=== PATIENT | female | born 1985 | race Two or more races ===

== ENCOUNTER 2017-06-09 00:25 | Outpatient (CLI) | payer OTHER ==
[~2017-06-09] VITALS: Ht 147.3 cm; Wt 57.2 kg
[~2017-06-09 00:25] MED LIST: CALC600T5 PO; IRON45TA2 PO
[2017-06-09 00:48] VITALS: Ht 147.3 cm; Wt 57.2 kg
[2017-06-09 00:49] VITALS: BP 104/57; PULSE 71; RESP 18
[2017-06-09 01:56] LABS: ADD UMIC YES; UR ASCORBIC ACID NEGATIVE (NEGATIVE); UR BACTERIA FEW /HPF (NONE SEEN); UR BILIRUBIN (Dip) NEGATIVE (NEGATIVE); UR BLOOD (Dip) 3+ mg/dL (NEGATIVE); UR CLARITY CLEAR (CLEAR); UR COLOR YELLOW (YELLOW); UR GLUCOSE (Dip) NEGATIVE (NEGATIVE); UR KETONES (Dip) NEGATIVE (NEGATIVE); UR LEUKOCYTE ESTERASE (Dip) NEGATIVE Leu/ul (NEGATIVE); UR NITRITE (Dip) NEGATIVE (NEGATIVE); UR RBC 82 /HPF (0-5); UR SPECIFIC GRAVITY (Dip) 1.006 (1.003-1.030); UR TOTAL PROTEIN (Dip) 1+ mg/dl (NEGATIVE); UR UROBILINOGEN (Dip) NEGATIVE (NEGATIVE)
--- NOTE | 2017-06-09 02:04 | RADRPT ---
PROCEDURE: OB ultrasound for biophysical profile CLINICAL INDICATION: Abdominal pain, .. TECHNIQUE: Multiple sonographic images of the pelvis were obtained. Transabdominal view of the gr avid uterus are available for review. The images were reviewed on a PACS workstation. COMPARISON: None FINDINGS: breathing movement = 2/2 tone = 2/2 motion = 2/2 Amniotic fluid = 2/2 LASHAY = 12.6 cm Single live intrauterine in cephalic presentation with cardiac activity (154 bpm). Posterior placenta, grade 1. IMPRESSION: 1. Single viable intrauterine gestation. 2. Biophysical profile = 8/8. 3. LASHAY = 12.6 cm. RPTAT: HTAR .Trell Duffy MD, MD Date Time Electronically viewed and signed by .Trell Duffy MD, on 06/09/2017 02:04 .R/
--- NOTE | 2017-06-09 02:14 | TRIAGE ---
OB Triage Datetime Report Generated by CPN: 06/09/2017 02:14 Datetime: 06/09/2017 02:10 Stage of : OB Triage Datetime: 06/09/2017 01:00 EGA: 26.2 Datetime: 06/09/2017 00:43 Stage of : OB Triage Time of Arrival: 06/09/2017 00:18 Arrived By: Ambulance Arrived From: Home Chief Complaint: R/O LABOR Movement: Present Contractions: Irregular Time Contractions Began: 06/08/2017 19:30 Rupture of Membranes: Denies Vaginal Bleeding: None Vaginal Discharge: Denies Recent Sexual Intercouse: Denies Abdominal Trauma: Not Applicable Patient Complaints: None Time Provider Notified: 06/09/2017 01:07 Provider Notified: DR HODGE Initial Plan: CALL , EFM Maternal Assessment Level of Consciousness: Fully Conscious DTR's/Clonus: DTRs 2+; No Clonus Headache: Denies Blurred Vision: No Respiratory Effort: Unlabored; Regular Rhythm; Equal Expansion Breath Sounds, Left: Clear and Equal Breath Sounds, Right: Clear and Equal Nausea/Vomiting: Denies RUQ Epigastric Pain: Denies Lower Extremities Edema: None Degree: None Upper Extremities Edema: None Degree: None Facial Edema: None Temperature Route: Oral Fall Risk Assessment History of Falling: (0) No Secondary Diagnosis: (0) No Ambulatory Aid: (0) Bedrest/Nurse Assist IV Therapy: (0) No Gait: (0) Normal/Bedrest/Immobile Mental Status: (0) Oriented to Own Ability Fall Score: 0 Fall Risk Score Definition: No Risk: No action required Labor Evaluation Monitor Mode: External Heart Rate Monitor Mode: External US
--- NOTE | 2017-06-09 07:23 | PN ---
Triage Information Date/Time Reason for visit: Abd/pelvic pain Weeks of Gestation 26 3/7 /Para Diabetes management: diet controlled Additional information 31 Year-old with SIUP at 26 3/7 wks brought by ambulance for abdominal pain. She has been receiving her care with Dr. Shafer. She states good movement. She denies nausea, vomiting, shortness of breath, chest pain, headache, visual changes, vaginal bleeding or LOF. Objective Vital Signs Date Time Temp Pulse Resp B/P Pulse Ox O2 Delivery O2 Flow Rate FiO2 06/09/17 00:49 98.2 71 18 104/57 Room Air Heart Rate: 130's Contractions: None Exam General: Patient appears well, alert and oriented, NAD, appropriate mood and affect ABD: gravid, soft, non-tender. Back: No CVA tenderness (B/L) LE: No clubbing, cyanosis, edema, thigh or calf tenderness bilaterally FHT: 130 bpm , moderate variability with acceleration, no deceleration-category I Contractions: None Results/Medications Results 24 hrs Laboratory Tests Test 06/09/17 01:00 Urine Color YELLOW Urine Clarity CLEAR Urine pH 6.0 Urine Specific [place] 1.006 Urine Ketones NEGATIVE Urine Nitrite NEGATIVE Urine Bilirubin NEGATIVE Urine Urobilinogen NEGATIVE Urine Leukocyte Esterase NEGATIVE Urine Microscopic RBC 82 H Urine Microscopic WBC 2 Urine Calcium Oxalate Crystals FEW A Urine Bacteria FEW A Urine Hemoglobin 3+ H Urine Glucose NEGATIVE Urine Total Protein 1+ H Disposition: Discharge Assessment/Plan 31 Year-old with SIUP at 26 3/7 wks with abdominal pain, however states currently has no pain. FHR: No sign of metabolic acidosis- Category I. Reactive NST. us performed which was nml. Symptoms and sign of labor, preeclampsia, kick count discussed with patient, she voiced understanding. All of her questions answered. She was discharged home in stable condition with the appropriate discharge instructions provided. I would like patient to have close follow-up with her primary physician or outpatient clinic in 1-2 days or return to the ER for worsening symptoms or any other urgent concerns. JACOBO RDZ Jun 09, 2017 07:22
== END 2017-06-09 02:12 | disposition home or self-care (01) ==
LOC: L-D 00:25 → OBT 00:25
PROVIDERS: ATTEND Obstetrics & Gynecology
DX: O26.892 Other specified pregnancy related conditions, second trimester (principal); Z3A.26 26 weeks gestation of pregnancy; R10.9 Unspecified abdominal pain
CPT/HCPCS: 76818; 81001; 87086; Z7500; G0463

== ENCOUNTER 2017-09-06 02:08 | Inpatient (IN) | payer OTHER ==
[~2017-09-06] VITALS: Ht 147.3 cm; Wt 57.1 kg
[2017-09-06] VITALS (7 sets, daily range): BP systolic 103–124; BP diastolic 60–78; PULSE 62–84; RESP 16–18; Ht 147.3 cm; Wt 57.1 kg
[2017-09-06] MEDS ORDERED: LACTATED RINGER'S 1,000 ML IV ONE (03:00)
[2017-09-06 03:18] LABS: ABNORMAL IP MESSAGE 1; BASOPHILS % 0.2 % (0.0-2.0); EOSINOPHILS % 0.4 % (0.0-7.0); HEMATOCRIT 33.5 % (37.0-47.0); HEMOGLOBIN 11.2 g/dl (12.0-16.0); LYMPHOCYTES # 2.6 10^3/ul (0.8-2.9); LYMPHOCYTES % 28.9 % (15.0-51.0); MEAN CORPUSCULAR HEMOGLOBIN 31.9 pg (29.0-33.0); MEAN CORPUSCULAR HGB CONC 33.4 g/dl (32.0-37.0); MEAN CORPUSCULAR VOLUME 95.4 fl (82.0-101.0); MEAN PLATELET VOLUME 13.4 fl (7.4-10.4); MONOCYTE # 0.6 10^3/ul (0.3-0.9); MONOCYTES % 6.5 % (0.0-11.0); NEUTROPHIL # 5.8 10^3/ul (1.6-7.5); NEUTROPHILS % 63.5 % (39.0-77.0); PLATELET COUNT 180 10^3/UL (140-415); RED BLOOD COUNT 3.51 10^6/ul (4.20-5.40); RED CELL DISTRIBUTION WIDTH 13.8 % (11.5-14.5); WHITE BLOOD COUNT 9.1 10^3/ul (4.8-10.8)
[2017-09-06 03:26] LABS: INR 0.91; POSITIVE DIFF @See below; PROTIME 12.2 Sec (12.2-14.2)
[2017-09-06 03:27] LABS: PARTIAL THROMBOPLASTIN TIME 25.4 Sec (25.0-35.0)
[2017-09-06] MEDS ORDERED: TERBUTALINE 1 MG/ML INJ SC ONE (03:30)
[2017-09-06] MEDS ORDERED: MISOPROSTOL 200 MCG TAB PR PRN ×2 (03:30→08:30)
[2017-09-06] MEDS ORDERED: FAMOTIDINE 20 MG INJ IV ONE (03:30)
[2017-09-06] MEDS ORDERED: METOCLOPRAMIDE 10 MG INJ IV ONE (03:30)
[2017-09-06] MEDS ORDERED: CARBOPROST 250 MCG INJ IM PRN ×2 (03:30→08:30)
[2017-09-06] MEDS ORDERED: OXYTOCIN 30 UNITS/LR 500 ML IV PRN ×2 (03:30→08:30)
[2017-09-06] MEDS ORDERED: CEFAZOLIN 2 GM/50 ML (PMX) 50 ML IV SCH (03:30)
[2017-09-06] MEDS ORDERED: METHYLERGONOVINE 0.2 MG INJ IM PRN ×2 (03:30→08:30)
[2017-09-06] MEDS ORDERED: TERBUTALINE 1 ML ONE (03:33)
[2017-09-06] MEDS ORDERED: FENTAnyl 50 MCG/ML VIAL ONE (03:50)
[2017-09-06] MEDS ORDERED: morphine SULFATE/PF (10 MG/10 ML) INJ ONE (03:50)
[2017-09-06] MEDS ORDERED: ONDANSETRON 4 MG INJ ONE (04:06)
[2017-09-06] MEDS ORDERED: DEXAMETHASONE 4 MG/ML 1 ML INJ ONE (04:06)
[2017-09-06] MEDS ORDERED: KETOROLAC 30 MG INJ IV PRN (04:30)
[2017-09-06] MEDS ORDERED: HYDROmorphONE 0.5 MG/0.5 ML SYG IV PRN ×2 (04:30)
[2017-09-06] MEDS ORDERED: NALOXONE (0.4 MG/ML) INJ IV PRN (04:30)
[2017-09-06] MEDS ORDERED: ZOLPIDEM 5 MG TAB PO PRN ×2 (04:30→08:30)
[2017-09-06] MEDS ORDERED: NALBUPHINE HCL (10 MG/1 ML) INJ IV PRN (04:30)
[2017-09-06] MEDS ORDERED: PHENYLephrine (100 MCG/ML) 5ML SYG ONE ×2 (04:58→07:00)
[2017-09-06] MEDS ORDERED: DIPHENHYDRAMINE 50 MG INJ ONE (05:04)
--- NOTE | 2017-09-06 05:26 | TRIAGE ---
OB Triage Datetime Report Generated by CPN: 09/06/2017 05:25 Datetime: 09/06/2017 03:14 Vaginal Exam Dilatation (cms): 1.5 Effacement (%): 80 Station: -2 Membrane Status: Intact Datetime: 09/06/2017 02:24 Time of Arrival: 09/06/2017 02:12 EGA: 39.1 Arrived By: Wheelchair Arrived From: Home Chief Complaint: PT C/O ABDOMEN PAIN Movement: Present Contractions: Regular Time Contractions Began: 09/06/2017 01:00 Rupture of Membranes: Denies Vaginal Bleeding: None Vaginal Discharge: Denies Recent Sexual Intercouse: Denies Abdominal Trauma: Not Applicable Patient Complaints: Contractions Time Provider Notified: 09/06/2017 02:24 Initial Plan: INITIAL AND ONGOING MATERNAL AND FETUS ASSESSMENT, NOTIFY MD Datetime: 06/09/2017 02:08 Labor Evaluation Frequency: 0 Monitor Mode: External Heart Rate FHR Baseline Rate: 145 Monitor Mode: External US FHR Baseline Changes: No Baseline Change Variability: Moderate 6-25 bpm Accelerations: 15X15 Decelerations: None Category: Category I Datetime: 06/09/2017 01:00 EGA: 26.2 Membranes Ruptured Date/Time: 09/06/2017 03:15 Membranes Rupture Method: Spontaneous Amniotic Fluid Color: Clear Amniotic Fluid Amount: Small Amniotic Fluid Odor: None Presentation 'A': Cephalic Datetime: 06/09/2017 00:43 Fall Risk Assessment Fall Score: 0 Fall Risk Score Definition: No Risk: No action required
--- NOTE | 2017-09-06 06:11 | HP ---
Date/Time of Note Date/Time of Note DATE: 09/06/17 TIME: 05:54 OB - History Hx of Present Free Text/Dictation 31y.o at 39w1d who had previous section x1 in labor with intact membrane. patient is scheduled for elective RC/S on 09/11/17 initial tracing revealed decrease BBV , recovered with hydration prepared for repeat low transverse section Add GDM Chief Complaint: uc's Estimated Due Date: Sep 06, 2017 : 2 Para: 1 Spontaneous : 0 Therapeutic : 0 Care: Limited Care Ultrasounds: Normal mid trimester US Obstetrical Complications: Gestational Diabetes Medical Complications: None Past Family/Social History * Past Medical, Surgical, Family and Obstetric Histories reviewed from chart. Blood Type: O+ RPR/VDRL: Negative GBS Status: Positive HBsAG: Negative OB Admission Exam Vital Signs Vital Signs Vital Signs Date Time Temp Pulse Resp B/P Pulse Ox O2 Delivery O2 Flow Rate FiO2 09/06/17 02:26 98.2 68 18 124/64 Room Air Physical Exam HEENT: WNL Heart: Rhythm Normal Lungs: Clear, Equal Abdomen: WNL Extremities: Normal Reflexes: Normal Cervical Dilatation: 5cm Station: -3 Membranes: Intact Heart Rate: 130's Accelerations: Accelerations Present Decelerations: No Decelerations Varibility: Minimum Contractions on Admission: < 5 Minutes Apart Intensity: Firm Last 72 hours Lab Results CBC & BMP 09/06/17 02:50 OB Assessment/Plan Reason for admission: active labor, section Plan: Section RAMOS TYLER MD Sep 06, 2017 06:04
--- NOTE | 2017-09-06 06:22 | SIPON ---
Date/Time of Note Date/Time of Note DATE: 09/06/17 TIME: 06:19 Operative Report Preoperative Diagnosis IUP 39w1d with previous section in active labor Postoperative Diagnosis delivered normal Operation/Procedure Performed repeat low transverse section Surgeon see signature line exceptional children teacher assistant eileen Anesthesia: spinal Estimated blood loss: other (400) Transfusion Required none Specimen none Grafts/Implants none Complications none RAMOS TYLER MD Sep 06, 2017 06:22
--- NOTE | 2017-09-06 06:40 | OPR ---
Operative Report Planned Procedure Procedure date Sep 06, 2017 Procedure(s) repeat low transverse section Performed by see signature line Assisting provider: NAIF RAYO Anesthesiologist: BHARATHI PUGH DO Pre-procedure diagnosis IUP 39w1d with previous c/s in labor Anesthesia Type: spinal Procedure Description Under satisfactory []spinal anesthesia, the patient was prepped and draped and placed in a supine position, tilted to the left. Pfannenstiel incision was madealong the previous incisional scar ,scar tissue was excised, carried through the subcutaneous tissue. Bleeders brought under control with electrocautery. Fascia incised to the length of the incision. Rectus muscles from the fascia, divided midline. Peritoneum exposed, entered . Exploration of abdomen revealed gravid uterus.. Transverse incision was made in the lower segment of the uterus. Amniotic sac ruptured. []clear amniotic fluid noted.normal infant was born from LOT [] Nasal oropharyngeal suction was performed. The baby was handed to the team for immediate attention.after delayed cord clamping. The placenta was delivered manually intact.after cord blood was obtained. Uterine cavity was cleaned with wet sponge and drainage established. Uterus closed in 2 layers using []#1 and 0 ch gut in continuous fashion. Peritoneal cavity irrigated with warm saline. Sponge , needle and instrument count reported to be correct. Abdominal peritoneum closed with []0ch gut continuously. Rectus muscle approximated with 0ch gut[]. Fascia closed with [1 vicryl in 2 segment], and subcut layer closed with 00 plain skin closed with 0000 monocryl in subcut. . Estimated blood loss 400mL. Urine bag contained 200 mL of urine sent to PAR in stable condition Post-Procedure Post-procedure diagnosis delivered normal female Findings: Live Baby [f], Apgars [8] and [9], weight 2580gm[], position [lot], [vx] presentation [no]cord. Estimated blood loss: other (400) Specimen(s): no Grafts/Implants: no Complication(s): no Pt Condition post procedure: stable Disposition: PACU Physician Certification I, the undersigned physician, hereby certify that I have discussed the procedure described in this consent form with this patient (or the patient's legal packaging sales representative), including: * The risk and benefits of the procedure; * Any adverse reactions that may reasonably be expected to occur; * Any alternative efficacious methods of treatment which may be medically viable ; * The potential problems that may occur during recuperation; * Potential for blood transfusion and associated risks/benefits; and * Any research or economic interest I may have regarding this treatment. I further certify that the patient/legally responsible person was encouraged to ask question and that all questions were answered. RAMOS TYLER MD Sep 06, 2017 06:39
[2017-09-06] MEDS ORDERED: DIPHENHYDRAMINE 50 MG INJ IV PRN (08:30)
[2017-09-06] MEDS ORDERED: LANOLIN 7 GM TUBE TOP PRN (08:30)
[2017-09-06] MEDS ORDERED: ONDANSETRON 4 MG INJ IV PRN (08:30)
[2017-09-06] MEDS ORDERED: OXYCODONE/ACETAMINOPHEN (5/325) TAB PO PRN ×2 (08:30)
[2017-09-06] MEDS: ONDANSETRON 4 MG INJ IV PRN ×2 (08:52→18:04)
[2017-09-06] MEDS: SENNA/DOCUSATE NA (8.6MG/50MG) TAB PO SCH ×2 (09:00→21:00)
[2017-09-06] MEDS ORDERED: CEFAZOLIN 2 GM/50 ML (PMX) 50 ML IVPB ONE (12:00)
[2017-09-06] MEDS: OXYTOCIN 30 UNITS/LR 500 ML IV SCH ×3 (12:33→20:00)
[2017-09-07] MEDS: OXYTOCIN 30 UNITS/LR 500 ML IV SCH ×2 (00:01→02:00)
[2017-09-07 00:10] VITALS: BP 105/62; PULSE 72; RESP 18
[2017-09-07] MEDS: IBUPROFEN 600 MG TAB PO SCH ×4 (06:25→23:18)
[2017-09-07 08:00] VITALS: BP 100/52; PULSE 76; RESP 18
[2017-09-07] MEDS ORDERED: INFLUENZA VIRUS VACCINE 0.5 ML (DISPENSING) IM* ONE (09:00)
[2017-09-07] MEDS ORDERED: CEFAZOLIN 2 GM/50 ML (PMX) 50 ML IVPB ONE (09:00)
[2017-09-07] MEDS: SENNA/DOCUSATE NA (8.6MG/50MG) TAB PO SCH ×2 (09:07→21:06)
--- NOTE | 2017-09-07 10:14 | QN ---
Documentation Comment Post day 1 Afebrile, vital signs are stable Abdomen soft, incision dry, bowel sounds present,, no bowel movement, extremities normal, relation encouraged NARAYAN RYAN MD Sep 07, 2017 10:14
[2017-09-07 13:48] LABS: ABNORMAL IP MESSAGE 1; BASOPHILS % 0.3 % (0.0-2.0); EOSINOPHILS % 0.3 % (0.0-7.0); HEMATOCRIT 25.9 % (37.0-47.0); HEMOGLOBIN 8.4 g/dl (12.0-16.0); LYMPHOCYTES # 1.3 10^3/ul (0.8-2.9); LYMPHOCYTES % 17.2 % (15.0-51.0); MEAN CORPUSCULAR HEMOGLOBIN 32.1 pg (29.0-33.0); MEAN CORPUSCULAR HGB CONC 32.4 g/dl (32.0-37.0); MEAN CORPUSCULAR VOLUME 98.9 fl (82.0-101.0); MEAN PLATELET VOLUME 13.5 fl (7.4-10.4); MONOCYTE # 0.4 10^3/ul (0.3-0.9); MONOCYTES % 4.6 % (0.0-11.0); NEUTROPHIL # 5.9 10^3/ul (1.6-7.5); NEUTROPHILS % 77.3 % (39.0-77.0); PLATELET COUNT 138 10^3/UL (140-415); RED BLOOD COUNT 2.62 10^6/ul (4.20-5.40); RED CELL DISTRIBUTION WIDTH 14.2 % (11.5-14.5); WHITE BLOOD COUNT 7.6 10^3/ul (4.8-10.8)
[2017-09-07 13:58] LABS: POSITIVE DIFF @See below
[2017-09-07 16:00] VITALS: BP 97/53; PULSE 86; RESP 18
[2017-09-08] MEDS: IBUPROFEN 600 MG TAB PO SCH ×4 (05:19→23:43)
[2017-09-08 07:50] VITALS: BP 93/59; PULSE 75; RESP 16
[2017-09-08] MEDS: SENNA/DOCUSATE NA (8.6MG/50MG) TAB PO SCH ×2 (09:17→20:35)
[2017-09-08 16:15] VITALS: BP 108/69; PULSE 74; RESP 16
--- NOTE | 2017-09-08 17:06 | QN ---
Documentation Comment Post day 2 Afebrile vital signs are stable Abdomen soft, bowel sounds present, incision dry patient had normal bowel movement, extremities normal, plan of possible a.m. discharge discussed with the patient NARAYAN RYAN MD Sep 08, 2017 17:06
[2017-09-08 20:00] VITALS: BP 105/62; PULSE 78; RESP 18
[2017-09-09 04:05] VITALS: BP 100/54; PULSE 69; RESP 20
[2017-09-09] MEDS: IBUPROFEN 600 MG TAB PO SCH ×2 (06:46→12:00)
[2017-09-09 08:15] VITALS: BP 116/54; PULSE 64; RESP 17
[2017-09-09] MEDS ORDERED: DIPHTH/TET/ACEL PERTUSS (ADULT) 0.5 ML VIAL IM* ONE (09:00)
[2017-09-09] MEDS: SENNA/DOCUSATE NA (8.6MG/50MG) TAB PO SCH (09:21)
--- NOTE | 2017-09-09 10:03 | PD.PPDC ---
PLASTICS FITTER Discharge Instruction Condition Patient Condition: Good Activity/Restrictions Activity: Normal Activity May Shower Restrictions: No Exercising No Lifting No Driving No Sexual Activity Nothing in the Vagina No [place] No Tampons, douche Wound/Drain Care Instructions Wound/Drain Care Instructions: Remove Steri Strips in 1 week Follow-up Follow-up with Physician: 1, Week/Weeks Provider Information: Post instructions given recommended to make appointment to be seen at the clinic in 1 week Return to clinic for ENLISTED ADVISOR Instructions: Fever greater than 101 Chills Worsening abdominal pain Excessive Vaginal Bleeding More than 2 pads per hour Unable to tolerate diet OB Instructions: Breast Tenderness Depression Blurried Vision Headache Surgical Instructions: Incisional Drainage Incisional Redness NARAYAN RYAN MD Sep 09, 2017 10:03
--- NOTE | 2017-09-09 10:06 | DS ---
Date/Time of Note Date/Time of Note DATE: 09/09/17 TIME: 10:04 Discharge Summary Admission/Discharge Info Admit Date/Time Sep 06, 2017 at 03:11 Discharge Date/Time September 09, 2017 at 10 AM Discharge Diagnosis Post repeat day 3 Patient Condition: Good Procedures Repeat Hx of Present Illness 39 weeks plus history of previous Hospital Course Satisfactory recovery uneventful Home Meds Reported Medications Calcium Carbonate (CALCIUM) 600 Mg Tablet, 600 MG PO DAILY 09/01/13 Iron,Carbonyl (IRON) 45 Mg Tablet, 45 MG PO DAILY 09/01/13 Follow-up Plan Post instructions given recommended to make appointment to be seen at the office in 1 week Primary Care Provider Not On Staff Doctor Time spent on discharge: < 30 minutes NARAYAN RYAN MD Sep 09, 2017 10:06
[2017-09-09 15:30] VITALS: BP 109/57; PULSE 62; RESP 19
== END 2017-09-09 16:15 | disposition home or self-care (01) | DRG 766 ==
LOC: OBT 02:08 → L-D 02:09 → OBT 03:10 → L-D 03:11 → PP1 08:23
PROVIDERS: ADMIT Obstetrics & Gynecology; ATTEND Obstetrics & Gynecology
PROC: 10D00Z1 Extraction of Products of Conception, Low, Open Approach (ICD-10-PCS; principal; 2017-09-06 04:15)
DX: O34.211 Maternal care for low transverse scar from previous cesarean delivery (principal); O24.429 Gestational diabetes mellitus in childbirth, unspecified control; Z3A.39 39 weeks gestation of pregnancy; Z37.0 Single live birth
CPT/HCPCS: 36415; 82962; 85025; 85610; 85730; 86592; 86850; 86900; 86901; 90686; 90715; 99464; G0463; J0690; J1100; J1200; J1885; J2274; J2370; J2405; J2590; J2765; J3010; J3105; J7120